=== PATIENT | male | born 1950 | race Caucasian/White ===

== ENCOUNTER 2018-01-17 16:59 | Observation (INO) | payer OTHER ==
[2018-01-17 17:11] VITALS: BMI 28.7
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
[2018-01-17] MEDS ORDERED: morphine CARPU-JECT 4 MG/1 ML DISP.SYRIN IVPUSH ONE (18:16)
[2018-01-17] MEDS ORDERED: morphine SULFATE 4 MG/ML VIAL ONE ×2 (18:20→21:34)
[2018-01-17 18:31] LABS: BASO % 0.4 % (0-2.0); EOS % 0.1 % (0-4.5); HEMATOCRIT 45.3 % (35.4-49); HEMOGLOBIN 15.6 GM/dL (11.7-16.9); LYMPH % 6.2 % (8-40); MCH 32.1 pg (25.7-33.7); MCHC 34.4 g/dl (32.0-35.9); MEAN CELL VOLUME 93.3 fl (80-96); MEAN PLT VOLUME 8.6 fl (7.5-11.1); MONO % 5.8 % (3.8-10.2); NEUT % 87.5 % (42.8-82.8); PLATELET COUNT 225 K/MM3 (134-434); RBC 4.86 M/mm3 (4.00-5.60); RDW 13.3 % (11.9-15.9); WHITE BLOOD COUNT 11.4 K/mm3 (4.0-10.0)
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
[2018-01-17 18:43] LABS: INR 1.08 (0.82-1.09); PROTHROMBIN TIME (PATIENT) 12.2 SEC (9.98-11.88)
[2018-01-17 18:46] LABS: ACTIVATED PTT 24.2 SECONDS (26.9-34.4)
[2018-01-17 19:02] LABS: ALK PHOS 99 U/L (45-117)
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
[2018-01-17 19:09] LABS: ALBUMIN 4.4 g/dl (3.4-5.0); ANION GAP 7 (8-16); BILIRUBIN,TOTAL 0.6 mg/dL (0.2-1.0); BLOOD UREA NITROGEN 23 mg/dL (7-18); CALCIUM 9.3 mg/dL (8.5-10.1); CHLORIDE 106 mmol/L (98-107); CO2 26 mmol/L (21-32); GLUCOSE,RANDOM 82 mg/dL (74-106); SGPT/ALT 43 U/L (12-78); SODIUM 139 mmol/L (136-145); TOT PROT 7.7 g/dl (6.4-8.2)
[2018-01-17 19:10] LABS: POTASSIUM 6.3 mmol/L (3.5-5.1); SGOT/AST 36 U/L (15-37)
[2018-01-17] MEDS ORDERED: SODIUM CHLORIDE 0.9% 1000 ML INFUS.BAG IV ONE (19:59)
[2018-01-17] MEDS ORDERED: morphine CARPU-JECT 2 MG/1 ML DISP.SYRIN IM ONE (21:12)
[2018-01-18] MEDS ORDERED: morphine CARPU-JECT 2 MG/1 ML DISP.SYRIN IVPUSH STA (00:31)
[2018-01-18] MEDS ORDERED: morphine SULFATE 4 MG/ML VIAL IVPUSH STA (00:31)
[2018-01-18] MEDS ORDERED: TETANUS AND DIPHTHERIA TOXOID 0.5 ML DISP.SYRIN IM ONE (00:47)
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
[2018-01-18] MEDS ORDERED: CYCLOBENZAPRINE HCL 10 MG TABLET (FP) PO ONE (00:55)
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
[2018-01-18] MEDS ORDERED: morphine SULFATE 4 MG/ML VIAL ONE (01:01)
[2018-01-18] MEDS ORDERED: CYCLOBENZAPRINE HCL 10 MG TABLET (FP) ONE (01:31)
[2018-01-18] MEDS ORDERED: IBUPROFEN 800 MG/8 ML IJ IVPB ONE (04:00)
[2018-01-18] MEDS ORDERED: HEPARIN NA (PORCINE) 5,000 UNITS/ML 1ML VIAL SQ SCH (06:00)
[2018-01-18] MEDS ORDERED: IBUPROFEN 400 MG TABLET (FP) PO PRN (07:40)
[2018-01-18 07:57] LABS: BASO % 0.7 % (0-2.0); EOS % 1.2 % (0-4.5); HEMOGLOBIN 13.2 GM/dL (11.7-16.9); LYMPH % 20.4 % (8-40); MCH 32.6 pg (25.7-33.7); MCHC 34.9 g/dl (32.0-35.9); MEAN CELL VOLUME 93.6 fl (80-96); MEAN PLT VOLUME 8.6 fl (7.5-11.1); MONO % 11.8 % (3.8-10.2); NEUT % 65.9 % (42.8-82.8); PLATELET COUNT 174 K/MM3 (134-434); RBC 4.06 M/mm3 (4.00-5.60); RDW 13.2 % (11.9-15.9); WHITE BLOOD COUNT 6.8 K/mm3 (4.0-10.0)
[2018-01-18 08:27] LABS: ANION GAP 8 (8-16); BLOOD UREA NITROGEN 20 mg/dL (7-18); CALCIUM 8.6 mg/dL (8.5-10.1); CHLORIDE 109 mmol/L (98-107); CO2 25 mmol/L (21-32); CREATININE 0.9 mg/dL (0.7-1.3); GLUCOSE,RANDOM 101 mg/dL (74-106); MAGNESIUM 2.1 mg/dL (1.8-2.4); PHOSPHOROUS 4.1 mg/dL (2.5-4.9); POTASSIUM 3.9 mmol/L (3.5-5.1); SODIUM 142 mmol/L (136-145)
[2018-01-18] MEDS ORDERED: DOCUSATE SODIUM 100 MG CAPSULE (FP) PO SCH (10:00)
[2018-01-18] MEDS ORDERED: morphine SO4 SUSTAINED ACTING 15 MG TABLET.SA PO SCH (10:00)
[2018-01-18 11:18] VITALS: BP 110/66; PULSE 74; TEMP 98.1
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
--- NOTE | 2018-01-18 15:33 | EKG ---
Test Reason : Blood Pressure : / mmHG Vent. Rate : 071 BPM Atrial Rate : 071 BPM P-R Int : 182 ms QRS Dur : 078 ms QT Int : 372 ms P-R-T Axes : 038 072 075 degrees QTc Int : 404 ms NORMAL SINUS RHYTHM POSSIBLE LEFT ATRIAL ENLARGEMENT BORDERLINE ECG NO PREVIOUS ECGS AVAILABLE Confirmed by VANESA GERARDO MD ([id number]) on 01/18/2018 3:33:01 PM Referred By: Confirmed By:VANESA GERARDO MD
--- NOTE | 2018-01-19 14:47 | HOSP ---
Subjective - Review of Symptoms Events since last encounter: called that patient is in so much pain. took one tab of percocet 5/325 and one naproxen. no cough or fever or SOB. she was advised to give 2 percocet pills q 8 hours . and cont naproxen BID PRN. 15 more pills of percocet 5/325 were sent to his pharmacy. more painmeds to be prescribed by PCp after evaluation of patient Physical Examination Vital Signs: Vital Signs Temperature 98.1 F 01/18/18 08:00 Pulse Rate 74 01/18/18 08:00 Respiratory Rate 18 01/18/18 08:00 Blood Pressure 110/66 01/18/18 08:00 O2 Sat by Pulse Oximetry (%) 96 01/18/18 08:00 Labs: CBC, BMP 01/18/18 06:00 01/18/18 06:00
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
== END 2018-01-18 15:16 | disposition home or self-care (01) ==
LOC: JER 16:59 → JERBED 23:35 → J4W 01-18 02:21
PROVIDERS: ADMIT Internal Medicine; ATTEND Internal Medicine
PROC: 3E033NZ Introduction of Analgesics, Hypnotics, Sedatives into Peripheral Vein, Percutaneous Approach (ICD-10-PCS; principal; 2018-01-17)
PROC: 3E033GC Introduction of Other Therapeutic Substance into Peripheral Vein, Percutaneous Approach (ICD-10-PCS; 2018-01-17)
PROC: 3E0337Z Introduction of Electrolytic and Water Balance Substance into Peripheral Vein, Percutaneous Approach (ICD-10-PCS; 2018-01-17)
PROC: 3E023NZ Introduction of Analgesics, Hypnotics, Sedatives into Muscle, Percutaneous Approach (ICD-10-PCS; 2018-01-17)
PROC: 3E013GC Introduction of Other Therapeutic Substance into Subcutaneous Tissue, Percutaneous Approach (ICD-10-PCS; 2018-01-17)
PROC: 3E0234Z Introduction of Serum, Toxoid and Vaccine into Muscle, Percutaneous Approach (ICD-10-PCS; 2018-01-17)
DX: S22.42XA Multiple fractures of ribs, left side, initial encounter for closed fracture (principal); S50.311A Abrasion of right elbow, initial encounter; S80.211A Abrasion, right knee, initial encounter; V18.0XXA Pedal cycle driver injured in noncollision transport accident in nontraffic accident, initial encounter; Y93.55 Activity, bike riding; Y92.89 Other specified places as the place of occurrence of the external cause; D72.829 Elevated white blood cell count, unspecified; E87.5 Hyperkalemia
CPT/HCPCS: 36415; 71046-TC-FY; 71101-TC-FY; 71275-TC; 74174-TC; 80048; 80053; 83735; 84100; 84132; 85025; 85610; 85730; 86850; 86900; 86901; 90471; 93005; 93010; 96372; 96374; 96375; 96376; 99285-25; G0378; J1644; J7030